=== PATIENT | male | born 1990 | race Caucasian/White ===

== ENCOUNTER 2016-07-24 22:18 | Emergency (ER) | payer OTHER ==
[~2016-07-24] VITALS: Ht 190.5 cm; Wt 108.9 kg
[2016-07-24] MEDS ORDERED: cloNIDine HCL 0.1 MG TAB PO ONE (23:30)
[2016-07-24 23:37] LABS: Basophils # (auto) 0 uL; Basophils % (auto) 0.3 % (0.0-2.0); CONDITION AutoValidated; Eosinophils # (auto) 0.3 uL; Eosinophils % (auto) 2.8 % (0.0-7.0); Hematocrit 48.1 % (41.0-53.0); Hemoglobin 16.5 g/dL (13.5-17.5); Lymphocytes # (auto) 2.9 uL; Lymphocytes % (auto) 28.4 % (10.0-50.0); Mean Corpuscular Hemoglobin 30.4 pg (28.0-32.0); Mean Corpuscular Hgb Conc. 34.2 g/dL (32.0-36.0); Mean Corpuscular Volume 88.8 fL (80.0-100.0); Mean Platelet Volume 9.1 fL (7.4-10.4); Monocytes # (auto) 0.7 uL; Monocytes % (auto) 6.9 % (0.0-12.0); Neutrophils # (auto) 6.2 uL; Neutrophils % (auto) 61.6 % (37.0-80.0); Platelet Count (auto) 222 10^3/uL (140-450); Red Cell Distribution Width 13.2 % (11.6-16.0)
[2016-07-24 23:57] LABS: Albumin 3.9 g/dL (3.4-5.0); Anion Gap 13 (5-15); BUN/Creatinine Ratio 15.9; Blood Urea Nitrogen 14 mg/dL (7-18); Carbon Dioxide 19 mmol/L (21-32); Chloride 112 mmol/L (98-107); GFR African American 135 mL/min; GFR Non-African American 111 mL/min; Glucose 102 mg/dL (74-106); Sodium 144 mmol/L (136-145)
[2016-07-25 00:02] LABS: Alkaline Phosphatase 81 U/L (45-117); Bilirubin, Total 0.3 mg/dL (0.2-1.0); Total Protein 7.5 g/dL (6.4-8.2)
[2016-07-25 00:12] LABS: Aspartate Aminotransferase 29 U/L (15-37); Magnesium 2.2 mg/dL (1.6-2.6); Potassium 3.5 mmol/L (3.5-5.1)
[2016-07-25 01:05] VITALS: BP 152/59
== END 2016-07-25 01:32 | disposition home or self-care (01) ==
LOC: ER 22:22
DX: F41.9 Anxiety disorder, unspecified (principal); F17.210 Nicotine dependence, cigarettes, uncomplicated; F12.10 Cannabis abuse, uncomplicated
CPT/HCPCS: 36415; 71020; 80053; 80307; 80320; 82962; 83735; 84484; 85025; 85379; 93005

== ENCOUNTER 2016-08-15 12:01 | Emergency (ER) | payer OTHER ==
[~2016-08-15] VITALS: Ht 190.5 cm; Wt 109.8 kg
[2016-08-15 12:50] VITALS: BP 142/85
[2016-08-15] MEDS ORDERED: IBUPROFEN 600 MG TAB PO ONE (13:00)
[2016-08-15] MEDS ORDERED: METHOCARBAMOL 500 MG TAB PO ONE (13:45)
[2016-08-15] MEDS ORDERED: ONDANSETRON HCL 4 MG/2 ML VIAL IM ONE (13:45)
[2016-08-15] MEDS ORDERED: HYDROmorphone HCL 2 MG/ML VL IM ONE (13:45)
== END 2016-08-15 14:53 | disposition home or self-care (01) ==
LOC: ER 12:01
DX: M54.16 Radiculopathy, lumbar region (principal); M54.5 Low back pain; F17.210 Nicotine dependence, cigarettes, uncomplicated; F12.10 Cannabis abuse, uncomplicated; G89.29 Other chronic pain; W17.89XA Other fall from one level to another, initial encounter; Y93.89 Activity, other specified; Y92.89 Other specified places as the place of occurrence of the external cause; Y99.8 Other external cause status
CPT/HCPCS: 72100; 72131; 72220; 96372; 99284; J1170; J2405

== ENCOUNTER 2016-08-20 17:06 | Emergency (ER) | payer OTHER ==
[~2016-08-20] VITALS: Ht 190.5 cm; Wt 112.0 kg
[2016-08-20 17:15] VITALS: BP 149/97
[2016-08-20] MEDS ORDERED: LIDOCAINE 1% HCL (LOCAL ANESTH.) INJ 20ML MDV IN ONE (17:30)
== END 2016-08-20 18:16 | disposition home or self-care (01) ==
LOC: ER 17:08
DX: L05.02 Pilonidal sinus with abscess (principal); F17.210 Nicotine dependence, cigarettes, uncomplicated; F12.10 Cannabis abuse, uncomplicated
CPT/HCPCS: 10080; 99283; J2001

== ENCOUNTER 2016-08-21 12:12 | Observation (INO) | payer OTHER ==
[~2016-08-21] VITALS: Ht 190.5 cm; Wt 114.3 kg
[2016-08-21 13:02] LABS: Basophils # (auto) 0 uL; Basophils % (auto) 0.1 % (0.0-2.0); CONDITION Y; Eosinophils # (auto) 0 uL; Eosinophils % (auto) 0.1 % (0.0-7.0); Hematocrit 46.4 % (41.0-53.0); Hemoglobin 16.3 g/dL (13.5-17.5); Lymphocytes # (auto) 0.2 uL; Lymphocytes % (auto) 2.3 % (10.0-50.0); Mean Corpuscular Hemoglobin 30.6 pg (28.0-32.0); Mean Corpuscular Hgb Conc. 35.2 g/dL (32.0-36.0); Mean Platelet Volume 8.7 fL (7.4-10.4); Monocytes # (auto) 0.4 uL; Monocytes % (auto) 4.2 % (0.0-12.0); Neutrophils % (auto) 93.3 % (37.0-80.0); Platelet Count (auto) 212 10^3/uL (140-450); Red Cell Distribution Width 12.9 % (11.6-16.0); SUSPECT SEE PRINTOUT; White Blood Cell 10.7 10^3/uL (4.4-10.8)
[2016-08-21 13:05] LABS: Urine Bilirubin Negative (Negative); Urine Blood Negative /uL (Negative); Urine Color Yellow (Yellow); Urine Glucose Normal (Normal); Urine Ketone Negative (Negative); Urine Mucus FEW (None Seen); Urine Nitrite Negative (Negative); Urine RBC 1 /hpf (0 - 3); Urine Squamous Epithelial Cell FEW /hpf (<5)
[2016-08-21 13:10] VITALS: BP 122/64
[2016-08-21 13:26] LABS: Albumin 3.7 g/dL (3.4-5.0); BUN/Creatinine Ratio 11.7; Bilirubin, Total 0.7 mg/dL (0.2-1.0); Calcium 9.5 mg/dL (8.5-10.1); Potassium 3.3 mmol/L (3.5-5.1); Total Protein 8.1 g/dL (6.4-8.2)
[2016-08-21] MEDS ORDERED: SODIUM CHLORIDE 0.9% 1,000 ML IVB ONE (13:46)
[2016-08-21] MEDS ORDERED: cefTRIAXone 1GM/50ML D5W 50 ML IV ONE (14:00)
[2016-08-21] MEDS ORDERED: ONDANSETRON HCL 4 MG/2 ML VIAL IV ONE (14:45)
[2016-08-21] MEDS ORDERED: POTASSIUM CHL 20 Meq TABLET PO ONE (15:30)
== END 2016-08-21 16:57 | disposition home or self-care (01) | DRG 249 ==
LOC: ER 12:17 → OVERFLOW 13:47 → ER 16:57
PROVIDERS: ADMIT Family Medicine; ATTEND Family Medicine
DX: R11.2 Nausea with vomiting, unspecified (principal); E87.6 Hypokalemia; Z82.49 Family history of ischemic heart disease and other diseases of the circulatory system; F17.210 Nicotine dependence, cigarettes, uncomplicated
CPT/HCPCS: 36415; 71010; 80053; 81001; 83735; 85025; 87040; 96365; 96375; 99285; G0378; J0696; J2405

== ENCOUNTER 2016-08-25 12:40 | Emergency (ER) | payer OTHER ==
[~2016-08-25] VITALS: Ht 190.5 cm; Wt 112.0 kg
[2016-08-25 13:13] VITALS: BP 152/97
== END 2016-08-25 14:13 | disposition home or self-care (01) ==
LOC: ER 12:41
DX: L05.01 Pilonidal cyst with abscess (principal); F17.210 Nicotine dependence, cigarettes, uncomplicated; F12.10 Cannabis abuse, uncomplicated; Z48.01 Encounter for change or removal of surgical wound dressing

== ENCOUNTER 2017-03-12 10:18 | Emergency (ER) | payer OTHER ==
[~2017-03-12] VITALS: Ht 190.5 cm; Wt 115.7 kg
[2017-03-12 11:51] VITALS: BP 160/86
== END 2017-03-12 12:12 | disposition home or self-care (01) ==
LOC: ER 10:18
DX: L05.01 Pilonidal cyst with abscess (principal); F17.210 Nicotine dependence, cigarettes, uncomplicated

== ENCOUNTER 2018-04-06 18:44 | Emergency (ER) | payer OTHER ==
[~2018-04-06] VITALS: Ht 190.5 cm; Wt 117.9 kg
[2018-04-06] MEDS ORDERED: cefTRIAXone SOD 1,000 MG VL IM ONE (19:30)
[2018-04-06] MEDS ORDERED: methylPREDNISolone SOD SUCC 125 MG/2 ML VL IM ONE (19:30)
[2018-04-06] MEDS ORDERED: LIDOCAINE W/ EPINEPHRINE 2% INJ 20ML VIAL IJ ONE (19:30)
[2018-04-06] MEDS ORDERED: ONDANSETRON ODT 4 MG TAB PO ONE (20:00)
[2018-04-06] MEDS ORDERED: MEPERIDINE HCL (50 MG/ML) 1 ML VIAL IM ONE (20:00)
[2018-04-06] MEDS ORDERED: TRIAMCINOLONE 40MG/ML 1ML VIAL IM ONE (20:15)
[2018-04-06 20:36] VITALS: BP 133/86
== END 2018-04-06 20:35 | disposition home or self-care (01) ==
LOC: ER 18:44
DX: L05.01 Pilonidal cyst with abscess (principal); F17.210 Nicotine dependence, cigarettes, uncomplicated; F12.10 Cannabis abuse, uncomplicated
CPT/HCPCS: 10080; 96372; 99284; C1887; J0696; J2175; J2930; J3301; Q0162

== ENCOUNTER 2020-06-09 12:15 | Emergency (ER) | payer SELFPAY ==
[~2020-06-09] VITALS: Ht 188 cm; Wt 117.9 kg
[2020-06-09 13:01] VITALS: BP 131/87
== END 2020-06-09 13:58 | disposition home or self-care (01) ==
LOC: ER 12:15
DX: R07.81 Pleurodynia (principal); F17.210 Nicotine dependence, cigarettes, uncomplicated; F12.10 Cannabis abuse, uncomplicated